=== PATIENT | female | born 1985 | race Caucasian/White ===

== ENCOUNTER 2017-10-27 11:14 | Outpatient (CLI) | payer OTHER | END 2017-10-27 15:13 | disposition home or self-care (01) | LOC: SONOGRAMA 11:14 | DX: R22.42 Localized swelling, mass and lump, left lower limb (principal) ==

== ENCOUNTER 2018-10-15 09:07 | Inpatient (IN) | payer OTHER ==
[~2018-10-15] VITALS: Ht 167.6 cm; Wt 83.5 kg
== END 2018-11-13 14:21 | disposition home or self-care (01) | DRG 807 ==
LOC: OB/GYN 10-23 15:30 → LDR 11-11 06:03 → SURG-SUITE 11-11 16:07 → OB/GYN 11-18 15:30
PROVIDERS: ADMIT Obstetrics & Gynecology
PROC: 10E0XZZ Delivery of Products of Conception, External Approach (ICD-10-PCS; principal; 2018-11-11)
PROC: 4A1HXCZ Monitoring of Products of Conception, Cardiac Rate, External Approach (ICD-10-PCS; 2018-11-11)
PROC: 0UQMXZZ Repair Vulva, External Approach (ICD-10-PCS; 2018-11-11)
DX: O71.82 Other specified trauma to perineum and vulva (principal); Z37.0 Single live birth; Z3A.39 39 weeks gestation of pregnancy

== ENCOUNTER 2018-11-03 14:33 | Outpatient (CLI) | payer OTHER | END 2018-11-03 15:00 | disposition home or self-care (01) | LOC: NST 14:33 | DX: Z34.83 Encounter for supervision of other normal pregnancy, third trimester (principal) ==

== ENCOUNTER 2020-08-02 17:34 | Outpatient (CLI) | payer OTHER | END 2020-08-02 17:46 | disposition home or self-care (01) | LOC: LAB 17:34 | PROVIDERS: ATTEND Urology | DX: N30.00 Acute cystitis without hematuria (principal) ==